=== PATIENT | female | born 1980 | race African-American/Black ===

== ENCOUNTER 2017-12-16 16:54 | Emergency (ER) | payer OTHER ==
[2017-12-16 17:02] VITALS: BMI 42.4
[2017-12-16] MEDS ORDERED: MAGNESIUM SULF 50% (8.12 MEQ/2 ML-1 GM VIAL) IVPB ONE (17:16)
[2017-12-16] MEDS ORDERED: METOCLOPRAMIDE HCL INJECTION 10 MG/2 ML VIAL IVPB ONE ×2 (17:18→17:53)
--- NOTE | 2017-12-16 17:39 | PDOC ---
Attending Attestation - Resident Resident Name: William Frey - ED Attending Attestation I have performed the following: I have examined & evaluated the patient, The case was reviewed & discussed with the resident, I agree w/resident's findings & plan, Exceptions are as noted - HPI HPI: 12/16/17 17:38 Ms Ramirez is a 37 yo F who presents to the ER with a complaint of headache Pt symptoms have been present through out the day No head trauma No fevers or chills - Physicial Exam PE: 12/16/17 17:38 GENERAL: The patient is in no acute distress. NECK: Normal range of motion, supple without lymphadenopathy, JVD, or masses. LUNGS: Breath sounds equal, clear to auscultation bilaterally. No wheezes, and no crackles. HEART:Regular rate and rhythm, normal S1 and S2 without murmur, rub or gallop. ABDOMEN: Soft, nontender, normoactive bowel sounds. No guarding, no rebound. No masses palpable. EXTREMITIES: Normal range of motion, no edema. No clubbing or cyanosis. No erythema, or tenderness. NEUROLOGICAL: Cranial nerves II through XII grossly intact. Normal speech. No focal neurological deficits. MUSCULOSKELETAL: Back non-tender to palpation, no CVA tenderness SKIN: Warm, Dry, normal turgor, no rashes or lesions noted. - Medical Decision Making 12/16/17 20:22 Laboratory Tests 12/16/17 12/16/17 12/16/17 17:49 18:00 18:00 WBC 15.5 H D Hgb 12.6 D Hct 36.8 Plt Count 356 D Neutrophils % (Manual) 70.0 INR 0.96 Urine Blood Negative Urine Nitrite Negative Ur Leukocyte Esterase 2+ H Urine WBC (Auto) 22 Urine RBC (Auto) 4 Ur Epithelial Cells Moderate U Marijuana (THC) Screen 12/16/17 18:12 WBC Hgb Hct Plt Count Neutrophils % (Manual) INR Urine Blood Urine Nitrite Ur Leukocyte Esterase Urine WBC (Auto) Urine RBC (Auto) Ur Epithelial Cells U Marijuana (THC) Screen Positive Pt CMP still pending Pt has already had a tray of food, she is requesting another UA is not clean but does show [address] Mcfarlane Will send to ob for monitoring 1+ protein on the UA Pt not hypertensive Headache resolved No scotoma 12/16/17 20:24 Suspect tension vs migraine headache Do not suspect pre eclampsia Pt will still be sent to OB for evaluation as she is a high risk Clinical Impression: headache, initial presentation
[2017-12-16] MEDS ORDERED: METOCLOPRAMIDE HCL INJECTION 10 MG/2 ML VIAL ONE (17:54)
[2017-12-16 18:16] LABS: BASO % 0.7 % (0-2.0); EOS % 1.8 % (0-4.5); HEMATOCRIT 36.8 % (32.4-45.2); HEMOGLOBIN 12.6 GM/dL (10.7-15.3); LYMPH % 25.5 % (8-40); MCH 31.4 pg (25.7-33.7); MCHC 34.3 g/dl (32.0-36.0); MEAN CELL VOLUME 91.5 fl (80-96); MEAN PLT VOLUME 7.8 fl (7.5-11.1); MONO % 7.2 % (3.8-10.2); NEUT % 64.8 % (42.8-82.8); PLATELET COUNT 356 K/MM3 (134-434); RBC 4.02 M/mm3 (3.60-5.2); RDW 14.2 % (11.6-15.6); WHITE BLOOD COUNT 15.5 K/mm3 (4.0-10.0)
[2017-12-16 18:36] LABS: INR 0.96 (0.82-1.09); PROTHROMBIN TIME (PATIENT) 10.9 SEC (9.7-13.0)
--- NOTE | 2017-12-16 18:42 | PDOC ---
History of Present Illness - General Chief Complaint: Headache Stated Complaint: HEADACHE Time Seen by Provider: 12/16/17 17:01 History Source: Patient Exam Limitations: No Limitations - History of Present Illness Initial Comments: 12/16/17 18:44 The patient is a aborta 2 at 7 months who presents to the ER with complaints of a headache. The patient states that this morning at 0200 she had an acute onset headache which is bilateral, frontal, described as pressure, nonradiating, 10/10 without any alleviating factors, worsened by light and loud sound. She denies any fever, chills, nausea, vomiting, diarrhea, constipation, vaginal bleeding, discharge, and abdominal cramping, dysuria, hematuria. Past History - Past Medical History Allergies/Adverse Reactions: Allergies Allergy/AdvReac Type Severity Reaction Status Date / Time acetaminophen [From Tylenol] Allergy Severe Difficulty Verified 11/07/17 16:39 Breathing aspirin Allergy Severe Difficulty Verified 11/07/17 16:39 Breathing ibuprofen [From Motrin] Allergy Severe Difficulty Verified 11/07/17 16:39 Breathing Penicillins Allergy Severe Hives Verified 11/07/17 16:39 Home Medications: Ambulatory Orders Vit No.130/Iron/Folic [ Vitamins] 1 each PO DAILY 11/07/17 Quetiapine Fumarate [Seroquel] 600 mg PO DAILY 11/07/17 Zolpidem Tartrate [Ambien] 10 mg PO HS 11/07/17 COPD: No - Suicide/Smoking/Psychosocial Hx Smoking History: Current every day smoker Have you smoked in the past 12 months: No Number of Cigarettes Smoked Daily: 10 Information on smoking cessation initiated: No Hx Alcohol Use: No Drug/Substance Use Hx: No Substance Use Type: None Review of Systems - Review of Systems Able to Perform ROS?: Yes Comments:: 12/16/17 18:47 GENERAL/CONSTITUTIONAL: No fever or chills. No weakness. HEAD, EYES, EARS, NOSE AND THROAT: No change in vision. No ear pain or discharge. No sore throat. CARDIOVASCULAR: No chest pain, palpitations, or lightheadedness. RESPIRATORY: No cough, wheezing, shortness of breath, or hemoptysis. GASTROINTESTINAL: No nausea, vomiting, diarrhea, constipation, or abdominal pain. GENITOURINARY: No dysuria, frequency, hematuria, or change in urination. MUSCULOSKELETAL: No joint or muscle swelling or pain. No neck or back pain. SKIN: No rash or lesions. NEUROLOGIC: Positive for headache. No numbness, tingling, weakness, loss of consciousness, or change in strength/sensation. ENDOCRINE: No increased thirst. No abnormal weight change. HEMATOLOGIC/LYMPHATIC: No anemia, easy bleeding, or history of blood clots. ALLERGIC/IMMUNOLOGIC: No hives or skin allergy. Is the patient limited Polish proficient: No *Physical Exam - Vital Signs Last Vital Signs Temp Pulse Resp BP Pulse Ox 98.0 F 85 18 119/75 98 12/16/17 18:12 12/16/17 18:12 12/16/17 18:12 12/16/17 18:12 12/16/17 18:12 - Physical Exam Comments: 12/16/17 18:47 GENERAL: Well developed, well nourished. Awake and alert. No acute distress. HEENT: Normocephalic, atraumatic. Hearing grossly normal. Moist mucous membranes. PERRLA, EOMI. No conjunctival pallor. Sclera are non-icteric. NECK: Supple. Full ROM. CARDIOVASCULAR: Regular rate and rhythm. No murmurs, rubs, or gallops. PULMONARY: No evidence of respiratory distress. Lungs clear to auscultation bilaterally. No wheezing, rales or rhonchi. ABDOMINAL: Soft. Non-tender. Non-distended. No rebound or guarding. GENITOURINARY: No CVA tenderness bilaterally. MUSCULOSKELETAL: Normal range of motion at all joints. No bony deformities or tenderness. EXTREMITIES: No cyanosis. No clubbing. No edema. No calf tenderness or swelling. SKIN: Warm and dry. Normal capillary refill. No rashes. No jaundice. NEUROLOGICAL: Alert, awake, appropriate. Cranial nerves 2-12 intact. No deficits to light touch and temperature in face, upper extremities and lower extremities. No motor deficits in the in face, upper extremities and lower extremities. Normal speech. Gait is normal without ataxia. PSYCHIATRIC: Cooperative. Good eye contact. Appropriate mood and affect. ED Treatment Course - LABORATORY CBC & Chemistry Diagram: 12/16/17 18:00 12/16/17 18:00 - ADDITIONAL ORDERS Additional order review: Laboratory Results 12/16/17 12/16/17 18:00 18:00 PT with INR 10.90 INR 0.96 Sodium Cancelled Potassium Cancelled Chloride Cancelled Carbon Dioxide Cancelled Anion Gap Cancelled BUN Cancelled Creatinine Cancelled Creat Clearance w eGFR Cancelled Random Glucose Cancelled Calcium Cancelled Magnesium Cancelled Total Bilirubin Cancelled AST Cancelled ALT Cancelled Alkaline Phosphatase Cancelled Total Protein Cancelled Albumin Cancelled 12/16/17 18:00 RBC 4.02 MCV 91.5 MCHC 34.3 RDW 14.2 MPV 7.8 Neutrophils % 64.8 Lymphocytes % 25.5 Monocytes % 7.2 Eosinophils % 1.8 Basophils % 0.7 - Medications Given in the ED: ED Medications Discontinued Medications Generic Name Dose Route Start Last Admin Trade Name Freq PRN Reason Stop Dose Admin Magnesium Sulfate 2 gm 12/16/17 17:16 12/16/17 17:50 Magnesium Sulfate IVPB 12/16/17 17:17 Not Given ONCE ONE Metoclopramide HCl 10 mg 12/16/17 17:18 12/16/17 17:50 Reglan Injection - IVPB 12/16/17 17:19 10 mg ONCE ONE Administration Metoclopramide HCl 10 mg 12/16/17 17:53 12/16/17 18:15 Reglan Injection - IVPB 12/16/17 17:54 Not Given ONCE ONE Medical Decision Making - Medical Decision Making 12/16/17 18:48 The patient is a 37F aborta 2 at 7 months who presents to the ER with a constant headache. The patient's BP is normotensive, lowering my concern for eclampsia. I have low suspicion for sinus venous thrombosis as the pt's headache was treated with fluids and reglan and is resolved. CBC WNL. Pending CMP. UA pending. 12/16/17 19:03 Pt signed out to Dr. Huber pending UA and CMP. *DC/Admit/Observation/Transfer - Referrals Referrals: Joi Mcguire [Primary Care Provider] - - Patient Instructions - Post Discharge Activity
[2017-12-16 18:53] LABS: ANISOCYTOSIS 1+; MACROCYTOSIS 1+; PLATELET ESTIMATE ADEQUATE
[2017-12-16 19:02] LABS: URINE APPEARANCE SLCLOUDY; URINE BILIRUBIN NEGATIVE (<2.0 mg/dL); URINE COLOR YELLOW; URINE GLUCOSE (UA) NEGATIVE (NEGATIVE); URINE KETONE NEGATIVE (NEGATIVE); URINE NITRITE NEGATIVE (NEGATIVE); URINE UROBILINOGEN NEGATIVE mg/dL (0.2-1.0)
--- NOTE | 2017-12-16 19:07 | PDOC ---
*Physical Exam - Vital Signs Last Vital Signs Temp Pulse Resp BP Pulse Ox 98.0 F 85 18 119/75 98 12/16/17 18:12 12/16/17 18:12 12/16/17 18:12 12/16/17 18:12 12/16/17 18:12 - Physical Exam Comments: 12/16/17 19:12 GENERAL: Awake, alert, and fully oriented, in no acute distress HEAD: No signs of trauma, normocephalic, atraumatic EYES: PERRLA, EOMI, sclera anicteric, conjunctiva clear ENT: Auricles normal inspection, hearing grossly normal, nares patent, oropharynx clear without exudates. Moist mucosa NECK: Normal ROM, supple, no lymphadenopathy, JVD, or masses LUNGS: No distress, speaks full sentences, clear to auscultation bilaterally HEART: Regular rate and rhythm, normal S1 and S2, no murmurs, rubs or gallops, peripheral pulses normal and equal bilaterally. ABDOMEN: Soft, nontender, normoactive bowel sounds. No guarding, no rebound. No masses EXTREMITIES : Normal inspection, Normal range of motion, no edema. No clubbing or cyanosis. NEUROLOGICAL: Cranial nerves II through XII grossly intact. Normal speech, normal gait, no focal sensorimotor deficits SKIN: Warm, Dry, normal turgor, no rashes or lesions noted ED Treatment Course - LABORATORY CBC & Chemistry Diagram: 12/16/17 18:00 12/16/17 18:00 - ADDITIONAL ORDERS Additional order review: Laboratory Results 12/16/17 12/16/17 18:00 18:00 PT with INR 10.90 INR 0.96 Sodium Cancelled Potassium Cancelled Chloride Cancelled Carbon Dioxide Cancelled Anion Gap Cancelled BUN Cancelled Creatinine Cancelled Creat Clearance w eGFR Cancelled Random Glucose Cancelled Calcium Cancelled Magnesium Cancelled Total Bilirubin Cancelled AST Cancelled ALT Cancelled Alkaline Phosphatase Cancelled Total Protein Cancelled Albumin Cancelled 12/16/17 18:00 RBC 4.02 MCV 91.5 MCHC 34.3 RDW 14.2 MPV 7.8 Neutrophils % 64.8 Lymphocytes % 25.5 Monocytes % 7.2 Eosinophils % 1.8 Basophils % 0.7 - Medications Given in the ED: ED Medications Discontinued Medications Generic Name Dose Route Start Last Admin Trade Name Freq PRN Reason Stop Dose Admin Magnesium Sulfate 2 gm 12/16/17 17:16 12/16/17 17:50 Magnesium Sulfate IVPB 12/16/17 17:17 Not Given ONCE ONE Metoclopramide HCl 10 mg 12/16/17 17:18 12/16/17 17:50 Reglan Injection - IVPB 12/16/17 17:19 10 mg ONCE ONE Administration Metoclopramide HCl 10 mg 12/16/17 17:53 12/16/17 18:15 Reglan Injection - IVPB 12/16/17 17:54 Not Given ONCE ONE Medical Decision Making - Medical Decision Making 12/16/17 19:07 Pt is 37 yo aborta 2 at 7 mga who p/w bilateral, frontal, described as pressure, non-radiating, 10/10 EDDY beginning at 0200 AM. +Photophobia and phonophobia. Denies fever, chills, nausea, vomiting, diarrhea, constipation, vaginal bleeding, discharge, and abdominal cramping, dysuria, hematuria. BP 119/ 75, VSS, AF. Low suspicion eclampsia, or sinous venous thrombosis. Received Reglan and NS. ED Course: WBC:15.5 12/16/17 20:59 CMP: Unremarkable 12/16/17 21:00 UA: 2+ Leuk Est, 22 WBC. UTOX: + THC Patient cleared from ED. Will go to L&D for further testing/monitoring. Dr. Diaz Capacity Planning Manager agrees with dispo. *DC/Admit/Observation/Transfer - Referrals Referrals: Joi Mcguire [Primary Care Provider] - - Patient Instructions - Post Discharge Activity
[2017-12-16 19:10] LABS: COCAINE, UR NEGATIVE ng/ml (CUTOFF=300); METHADONE, UR NEGATIVE ng/ml (CUTOFF=300); OPIATES, URI NEGATIVE ng/ml (CUTOFF=300); PHENCYCLIDINE,URINE NEGATIVE ng/ml (CUTOFF=25); URINE AMPHETAMINES NEGATIVE ng/ml (CUTOFF=500); URINE BARBITURATES NEGATIVE ng/ml (CUTOFF=200); URINE BENZODIAZEPINES NEGATIVE ng/ml (CUTOFF=200)
[2017-12-16 19:21] LABS: URINE LEUK ESTERASE 2+ (NEGATIVE); URINE PROTEIN 1+ (NEGATIVE)
[2017-12-16 19:22] LABS: EPI CELLS MODERATE /HPF (FEW)
[2017-12-16 20:58] LABS: ALBUMIN 2.5 g/dl (3.4-5.0); ALK PHOS 99 U/L (45-117); ANION GAP 11 (8-16); BILIRUBIN,TOTAL 0.3 mg/dL (0.2-1.0); BLOOD UREA NITROGEN 10 mg/dL (7-18); CALCIUM 8.7 mg/dL (8.5-10.1); CHLORIDE 106 mmol/L (98-107); CO2 19 mmol/L (21-32); GLUCOSE,RANDOM 230 mg/dL (74-106); POTASSIUM 4.1 mmol/L (3.5-5.1); SGOT/AST 30 U/L (15-37); SGPT/ALT 39 U/L (12-78); SODIUM 136 mmol/L (136-145)
[2017-12-16 22:34] VITALS: BP 124/71; PULSE 102; TEMP 97.8
--- NOTE | 2017-12-17 22:09 | EKG ---
Test Reason : Blood Pressure : / mmHG Vent. Rate : 119 BPM Atrial Rate : 119 BPM P-R Int : 124 ms QRS Dur : 086 ms QT Int : 320 ms P-R-T Axes : 041 080 010 degrees QTc Int : 450 ms SINUS TACHYCARDIA OTHERWISE NORMAL ECG NO PREVIOUS ECGS AVAILABLE Confirmed by TRAVIS BURKETT MD ([id number]) on 12/17/2017 10:09:27 PM Referred By: Confirmed By:TRAVIS BURKETT MD
== END 2017-12-16 22:45 | disposition home or self-care (01) ==
LOC: JER 16:54
DX: O26.893 Other specified pregnancy related conditions, third trimester (principal); R51 Headache; Z3A.31 31 weeks gestation of pregnancy
CPT/HCPCS: 36415; 80053; 80307; 81003; 81015; 85025; 85610; 87086; 93005; 93010; 99283-25

== ENCOUNTER 2018-01-25 08:27 | Inpatient (IN) | payer OTHER ==
[2018-01-25] MEDS ORDERED: OXYTOCIN 20 UNITS in 0.9% NS 20 UNIT/1,000 ML INFUS.BAG IV ONE (08:51)
[2018-01-25] MEDS ORDERED: VANCOMYCIN 1 GM PREMIX - 1 GM/200 ML BAG IVPB ONE (09:00)
[2018-01-25 09:32] LABS: BASO % 1.2 % (0-2.0); HEMATOCRIT 40.6 % (32.4-45.2); HEMOGLOBIN 13.8 GM/dL (10.7-15.3); LYMPH % 24.8 % (8-40); MCH 31.6 pg (25.7-33.7); MCHC 34.1 g/dl (32.0-36.0); MEAN CELL VOLUME 92.7 fl (80-96); MEAN PLT VOLUME 8.3 fl (7.5-11.1); MONO % 5.2 % (3.8-10.2); NEUT % 67.8 % (42.8-82.8); PLATELET COUNT 369 K/MM3 (134-434); RBC 4.38 M/mm3 (3.60-5.2); RDW 14.4 % (11.6-15.6); WHITE BLOOD COUNT 16.2 K/mm3 (4.0-10.0)
[2018-01-25 09:39] VITALS: BMI 41.9
[2018-01-25 09:47] LABS: INR 0.91 (0.82-1.09); PROTHROMBIN TIME (PATIENT) 10.3 SEC (9.7-13.0)
[2018-01-25 09:50] LABS: ACTIVATED PTT 31.1 SECONDS (25.2-36.5)
[2018-01-25 09:57] LABS: ANION GAP 11 (8-16); BLOOD UREA NITROGEN 10 mg/dL (7-18); CALCIUM 9.1 mg/dL (8.5-10.1); CHLORIDE 108 mmol/L (98-107); CO2 18 mmol/L (21-32); CREATININE 1.1 mg/dL (0.55-1.02); GLUCOSE,RANDOM 177 mg/dL (74-106); SODIUM 137 mmol/L (136-145)
[2018-01-25] MEDS ORDERED: LIDOCAINE HCL 1% PRESERVATIVE FREE - 30ML VIAL ONE (10:16)
[2018-01-25] MEDS ORDERED: BENZOCAINE 20% 57 GM BOTTLE TP PRN (10:39)
[2018-01-25] MEDS ORDERED: WITCH HAZEL 50% (TUCKS) 40 PAD/JAR PAD TP PRN (10:39)
[2018-01-25] MEDS ORDERED: METHYLERGONOVINE MALEATE 0.2 MG/1 ML AMP IM PRN (10:39)
[2018-01-25] MEDS ORDERED: BISACODYL 10 MG SUPP.RECT RC PRN (10:39)
[2018-01-25] MEDS ORDERED: BENZOCAINE 28 GM HEMORRHOIDAL OINTMENT TP PRN (10:39)
--- NOTE | 2018-01-25 10:43 | HP ---
Past Medical History - Admission Chief Complaint: Labor pain History of Present Illness: 38 yo , @ 37 weeks gestation, EDC 02/15/18, admitted for labor pain. Patient has h/o substance abuse and is on multiple medication. She also has allergies with several medication. Upon admission she was 6cm dilated. History Source: Patient Limitations to Obtaining History: Uncooperative - Past Medical History ...: 5 ...Para: 2 ...Term: 0 ...: 2 ...Spon : 0 ...Induced : 2 ...Multiple Gestation: 0 ...LMP: 05/11/17 ... Weeks Gestation by Dates: 37.0 ...EDC by Dates: 02/15/18 ...EDC by Sono: 02/16/18 - Past Surgical History Past Surgical History: Yes: None Hx Myomectomy: No Hx Transabdominal Cerclage: No - Smoking History Smoking history: Current every day smoker Have you smoked in the past 12 months: Yes Aproximately how many cigarettes per day: 20 - Alcohol/Substance Use Hx Alcohol Use: Yes History of Substance Use: reports: None - Social History Usual Living Arrangement: Yes: With Significant Other History of Recent Travel: No Home Medications - Allergies Allergies/Adverse Reactions: Allergies Allergy/AdvReac Type Severity Reaction Status Date / Time acetaminophen [From Tylenol] Allergy Severe Difficulty Verified 01/25/18 09:12 Breathing aspirin Allergy Severe Difficulty Verified 01/25/18 09:12 Breathing ibuprofen [From Motrin] Allergy Severe Difficulty Verified 01/25/18 09:12 Breathing Penicillins Allergy Severe Hives Verified 01/25/18 09:12 - Home Medications Home Medications: Ambulatory Orders Vit No.130/Iron/Folic [ Vitamins] 1 each PO DAILY 11/07/17 Quetiapine Fumarate [Seroquel] 600 mg PO DAILY 11/07/17 Zolpidem Tartrate [Ambien] 10 mg PO HS 11/07/17 Alprazolam [Xanax] 2 mg PO DAILY 01/25/18 Bupropion HCl [Wellbutrin -] 100 mg PO DAILY 01/25/18 Sertraline HCl [Zoloft] 100 mg PO BID 01/25/18 Review of Systems - Review of Systems Constitutional: reports: No Symptoms Eyes: reports: No Symptoms HENT: reports: No Symptoms Neck: reports: No Symptoms Cardiovascular: reports: No Symptoms Respiratory: reports: No Symptoms Gastrointestinal: reports: No Symptoms Genitourinary: reports: Pain Breasts: reports: No Symptoms Reported Musculoskeletal: reports: No Symptoms Neurological: reports: No Symptoms Endocrine: reports: No Symptoms Hematology/Lymphatic: reports: No Symptoms Psychiatric: reports: No Symptoms Pain Intensity: 9 Physical Exam - Maternity Vital Signs: Vital Signs Temperature 97.6 F 01/25/18 08:41 Pulse Rate 88 01/25/18 08:41 Respiratory Rate 20 01/25/18 08:41 Blood Pressure 137/85 01/25/18 08:41 O2 Sat by Pulse Oximetry (%) Constitutional: Yes: Well Nourished Eyes: Yes: Conjunctiva Clear HENT: Yes: Atraumatic Neck: Yes: Supple Cardiovascular: Yes: Regular Rate and Rhythm Lungs: Clear to auscultation - Abdominal Exam/OB Number of Fetuses: Single Presentation: Vertex - Vaginal Exam/OB Vaginal Bleediing: No - Physical Exam Musculoskeletal: Yes: WNL Extremities: Yes: WNL ...Motor Strength: WNL Psychiatric: Yes: Agitated - Labs Lab Results: CBC, BMP 01/25/18 09:20 01/25/18 09:20 Assessment/Plan Active labor 37 weeks gestation Spontaneous rupture of membrane Anticipate
--- NOTE | 2018-01-25 10:43 | PN ---
Delivery - Delivery Vaginal Delivery: Spontaneous Episiotomy/Laceration: Midline EBL (cc): 300 Delivery, Single - 1 Minute Total Score: 7 5 Minutes Total Score: 8 - Feeding Plan Initial Plan: Elected not to breastfeed exclusively throughout hospitalization Remarks - Remarks Remarks: Normal spontaneous vaginal delivery of a live infant under unusual circumstances. Patient was very uncoorporative. She would pull herself off the bed and close her legs, refusing to push and demanding for . After having 4 people holding her legs, and using suprapubic pressure, head was delivered. Nose / Oropharynx suctioned @ perineum. Cord clamped and cut. Placenta expelled spontaneously intact. Midline episiotomy repaired with 2.0 Chromic.
[2018-01-25] MEDS ORDERED: OXYTOCIN 20 UNITS in 0.9% NS 20 UNIT/1,000 ML INFUS.BAG IV SCH (10:45)
[2018-01-25] MEDS ORDERED: METHYLERGONOVINE MALEATE 0.2 MG/1 ML AMP IM ONE (12:00)
[2018-01-25] MEDS ORDERED: MEPERIDINE HCL CARPU-JECT 25 MG/1 ML DISP.SYRIN IM PRN (12:58)
[2018-01-25 13:05] LABS: COCAINE, UR NEGATIVE ng/ml (CUTOFF=300); OPIATES, URI NEGATIVE ng/ml (CUTOFF=300); URINE AMPHETAMINES NEGATIVE ng/ml (CUTOFF=500); URINE BARBITURATES NEGATIVE ng/ml (CUTOFF=200); URINE BENZODIAZEPINES NEGATIVE ng/ml (CUTOFF=200)
[2018-01-25 13:06] LABS: METHADONE, UR NEGATIVE ng/ml (CUTOFF=300); PHENCYCLIDINE,URINE NEGATIVE ng/ml (CUTOFF=25)
[2018-01-25] MEDS: FERROUS SO4 325 MG TABLET (FP) PO SCH (22:39)
--- NOTE | 2018-01-26 07:40 | PN ---
Progress Note (short form) - Note Progress Note: ppd 1 doing well, no excess vaginal bleeding CBC, BMP 01/25/18 09:20 01/25/18 09:20 Last Vital Signs Temp Pulse Resp BP Pulse Ox 98.5 F 65 18 130/78 98 01/26/18 06:00 01/26/18 06:00 01/26/18 06:00 01/26/18 06:00 01/25/18 11:15 abdomen soft, uterus firm, non tender lochia mild no calf tenderness plan ambulate cbc
[2018-01-26] MEDS: PRENATAL VITAMINS W/ FOLIC ACID TABLET (FP) PO SCH (09:56)
[2018-01-26] MEDS: FERROUS SO4 325 MG TABLET (FP) PO SCH ×2 (09:56→21:51)
[2018-01-26 11:05] LABS: BASO % 0.2 % (0-2.0); EOS % 0.7 % (0-4.5); HEMATOCRIT 37.6 % (32.4-45.2); HEMOGLOBIN 12.8 GM/dL (10.7-15.3); LYMPH % 21.1 % (8-40); MCH 31.4 pg (25.7-33.7); MEAN CELL VOLUME 92.5 fl (80-96); MONO % 4.8 % (3.8-10.2); NEUT % 73.2 % (42.8-82.8); PLATELET COUNT 334 K/MM3 (134-434); RBC 4.07 M/mm3 (3.60-5.2); RDW 14.3 % (11.6-15.6); WHITE BLOOD COUNT 22.1 K/mm3 (4.0-10.0)
--- NOTE | 2018-01-26 18:31 | CON.PSY ---
Psychiatry Consult Chief Complaint: Patient with a long history of Psych Illness, [place] being treated at [facility] [place] been on Seroquel 300mg p[o bid, ambien 10mg po hs , Xanax 2mg po bid. She has not taken Xanax in seven months. Symptoms: reports: Irritability, Restlessness - Previous Psychiatric Treatment Outpatient: Less than 6 mos ago Inpatient: None - Reason for Previous Treatment Reason for Previous Treatment: Major Depression, Anxiety or Panic Disorder - Current Medications Current Medications: Active Medications Benzocaine (Americaine 20% [place] -) 1 spray TP PRN PRN PRN Reason: PAIN Benzocaine (Americaine Ointment -) 1 applic TP PRN PRN PRN Reason: PAIN Bisacodyl (Dulcolax Suppository -) 10 mg RC PRN PRN PRN Reason: CONSTIPATION Ferrous Sulfate (Feosol -) 325 mg PO BID [facility] Last Admin: 01/26/18 09:56 Dose: 325 mg Meperidine HCl (Demerol Injection -) 50 mg IM Q6H PRN PRN Reason: PAIN LEVEL 4 - 6 Last Admin: 01/25/18 14:06 Dose: 50 mg Methylergonovine Maleate (Methergine Injection -) 0.2 mg IM Q4H PRN PRN Reason: EXCESSIVE BLEEDING (L&D) Last Admin: 01/25/18 10:20 Dose: 0.2 mg Multivit/Folic Acid/Iron ( Vitamins (Sjr) -) 1 tab PO DAILY [facility] Last Admin: 01/26/18 09:56 Dose: 1 tab Senna/Docusate Sodium (Pericolace -) 2 tablet PO HS PRN PRN Reason: CONSTIPATION Witch Giselle/Glycerin (Tucks Pads -) 1 pad TP PRN PRN PRN Reason: PAIN - Allergies Allergies: Allergies Allergy/AdvReac Type Severity Reaction Status Date / Time acetaminophen [From Tylenol] Allergy Severe Difficulty Verified 01/25/18 09:12 Breathing aspirin Allergy Severe Difficulty Verified 01/25/18 09:12 Breathing ibuprofen [From Motrin] Allergy Severe Difficulty Verified 01/25/18 09:12 Breathing Penicillins Allergy Severe Hives Verified 01/25/18 09:12 - Current Living Status Usual Living Arrangement: With Spouse - Current Mental Status Evaluation Appearance: Well Groomed Attitude: Cooperative - Affect Affect: Constrictive Appropriateness: Appropriate to Content - Mood Mood: Angry - Speech/Language Expressive: Coherent - Psychomotor Activity Psychomotor Activity: Hyperactive - Thought Process Thought Process: Intact - Thought Content Hallucinations: Absent Delusions: Absent - Self Perception Self Perception: No Impairment - Cognition Attention: Alert Orientation: Time Memory, Immediate Recall: Intact Memory, Short Term: 3/3 Memory, Remote with Promptin/3 - Concentration Serial Sevens Intact: No Simple Calculations Intact: Yes - Abstraction Proverb Interpretation: Intact Judgement: Intact - Insight Insight: Intact - Impulse Control Impulse Control: Minimally Impaired - Suicidal Ideation Suicidal Ideation: No - Homicidal Ideation Homicidal Ideation: No Assessment/Plan 1) Restart Seroquel 300mg po bid. 2) Patient is cleared for Discharge. 3) follow up at [facility] in [place].
[2018-01-26] MEDS: QUEtiapine FUMARATE 100 MG TABLET (FP) PO SCH (21:51)
[2018-01-26] MEDS ORDERED: SENNOSIDES/DOCUSATE COMBO (SENNA PLUS) TABLET (UD) PO PRN (22:00)
--- NOTE | 2018-01-27 07:58 | DS ---
Physical Exam-[employer] WORK[employer] WORKER Vital Signs: Vital Signs Temperature 98.0 F 01/26/18 22:00 Pulse Rate 96 H 01/26/18 22:00 Respiratory Rate 18 01/26/18 22:00 Blood Pressure 117/71 01/26/18 22:00 O2 Sat by Pulse Oximetry (%) 98 01/25/18 11:15 Constitutional: Yes: Well Nourished, No Distress, Calm Eyes: Yes: WNL, Conjunctiva Clear, EOM Intact HENT: Yes: WNL, Atraumatic, Normocephalic Neck: Yes: WNL, Supple, Trachea Midline Cardiovascular: Yes: WNL, Regular Rate and Rhythm Respiratory: Yes: WNL, Regular, CTA Bilaterally Gastrointestinal: Yes: WNL ...Rectal Exam: Yes: WNL Renal/: Yes: WNL ....Post : Yes: Uterus firm, Uterus non-tender, Slight lochia rubra Breast(s): Yes: WNL Musculoskeletal: Yes: WNL Extremities: Yes: WNL Integumentary: Yes: WNL Neurological: Yes: WNL, Alert, Oriented ...Motor Strength: WNL Psychiatric: Yes: WNL, Alert, Oriented Labs: CBC, BMP 01/26/18 10:35 01/25/18 09:20 Delivery - Delivery Vaginal Delivery: Spontaneous Type of Anesthesia: Local Episiotomy/Laceration: Midline EBL (cc): 300 Delivery, Single - Stages of Labor Date 1st Stage Initiatied: 01/25/18 Time 1st Stage Initiated: 06:00 Date 2nd Stage Initiated: 01/25/18 Time 2nd Stage Initiated: 09:40 Date of Delivery: 01/25/18 Time of Delivery: 10:11 Time Placenta Delivered: 10:15 Placenta: Yes: Spontaneous - Condition of Infant Road Builder/Tamale Maker Present: Yes Name: Kristofer Cotsa Gender: Female Weight: 6 lb 11 oz Position: Right, OA Total Hours ROM (Hrs/Mins): 13HR -36 MINS - 1 Minute Total Score: 7 5 Minutes Total Score: 8 - Feeding Plan Initial Plan: Elected not to breastfeed exclusively throughout hospitalization Discharge Summary Reason For Visit: LABOR Procedures: Principal: Condition: Good - Instructions Diet, Activity, Other Instructions: regular diet, follow up [facility] care 4 weeks, no intercourse, if heavy bleeding, fever , pain call MD Disposition: HOME - Home Medications Comprehensive Discharge Medication List: Ambulatory Orders Vit No.130/Iron/Folic [ Vitamins] 1 each PO DAILY 11/07/17 Quetiapine Fumarate [Seroquel] 600 mg PO DAILY 11/07/17 Zolpidem Tartrate [Ambien] 10 mg PO HS 11/07/17 Alprazolam [Xanax] 2 mg PO DAILY 01/25/18 Bupropion HCl [Wellbutrin -] 100 mg PO DAILY 01/25/18 Sertraline HCl [Zoloft] 100 mg PO BID 01/25/18
[2018-01-27 08:48] VITALS: BP 135/81; PULSE 93; TEMP 97.5
[2018-01-27] MEDS: PRENATAL VITAMINS W/ FOLIC ACID TABLET (FP) PO SCH (09:44)
[2018-01-27] MEDS: FERROUS SO4 325 MG TABLET (FP) PO SCH (09:44)
[2018-01-27] MEDS: QUEtiapine FUMARATE 100 MG TABLET (FP) PO SCH (09:44)
== END 2018-01-27 13:00 | disposition home or self-care (01) | DRG 560 ==
LOC: JLDR 08:27 → J3W 11:50
PROVIDERS: ADMIT Obstetrics & Gynecology; ATTEND Obstetrics & Gynecology
PROC: 10E0XZZ Delivery of Products of Conception, External Approach (ICD-10-PCS; principal; 2018-01-25)
PROC: 0W8NXZZ Division of Female Perineum, External Approach (ICD-10-PCS; 2018-01-25)
DX: O99.344 Other mental disorders complicating childbirth (principal); F32.9 Major depressive disorder, single episode, unspecified; F41.9 Anxiety disorder, unspecified; Z3A.37 37 weeks gestation of pregnancy; Z37.0 Single live birth; Z88.0 Allergy status to penicillin
CPT/HCPCS: 36415; 59409; 80048; 80307; 85025; 85610; 85730; 86593; 86850; 86900; 86901; 87389

== ENCOUNTER 2018-03-12 11:39 | Emergency (ER) | payer OTHER ==
[2018-03-12 11:46] VITALS: BMI 42.0
[2018-03-12] MEDS ORDERED: SODIUM CHLORIDE 1,000 ML IV STA (12:13)
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
--- NOTE | 2018-03-12 12:39 | PDOC ---
*Physical Exam - Vital Signs Last Vital Signs Temp Pulse Resp BP Pulse Ox 98.3 F 108 H 18 128/75 100 03/12/18 11:42 03/12/18 11:42 03/12/18 11:42 03/12/18 11:42 03/12/18 11:42 ED Treatment Course - LABORATORY CBC & Chemistry Diagram: 03/12/18 12:40 03/12/18 12:40 Medical Decision Making - Medical Decision Making 03/12/18 12:39 Pt seen by Midlevel Provider under my direct supervision Pt interviewed and examined Ancillary studies reviewed I agree with plan as outlined by Midlevel Provider *DC/Admit/Observation/Transfer Diagnosis at time of Disposition: UTI (urinary tract infection), Vaginal bleeding - Discharge Dispostion Disposition: HOME Condition at time of disposition: Good - Prescriptions Prescriptions: Fluconazole [Diflucan] 150 mg PO ONCE #1 tablet Nitrofurantoin Monohyd/M-Cryst [Macrobid -] 100 mg PO BID #14 capsule - Referrals - Patient Instructions Printed Discharge Instructions: Urinary Tract Infection Additional Instructions: Your blood work and ultrasound were normal. Your urine test showed that you do have an infection and antibiotics was sent to pharmacy. Your vaginal bleeding is most likely your menstruation which usually resumes about 6 weeks after delivery. Please follow-up with your RECREATION THERAPY AIDE in the next week - Post Discharge Activity
[2018-03-12 12:54] LABS: BASO % 1.5 % (0-2.0); HEMATOCRIT 38.2 % (32.4-45.2); HEMOGLOBIN 12.9 GM/dL (10.7-15.3); LYMPH % 38.4 % (8-40); MCH 30.2 pg (25.7-33.7); MCHC 33.9 g/dl (32.0-36.0); MEAN CELL VOLUME 89.2 fl (80-96); MEAN PLT VOLUME 7.7 fl (7.5-11.1); MONO % 6.4 % (3.8-10.2); NEUT % 49.7 % (42.8-82.8); PLATELET COUNT 376 K/MM3 (134-434); RBC 4.28 M/mm3 (3.60-5.2); RDW 13.6 % (11.6-15.6); WHITE BLOOD COUNT 9.7 K/mm3 (4.0-10.0)
[2018-03-12 13:08] LABS: URINE APPEARANCE CLOUDY; URINE BILIRUBIN NEGATIVE (<2.0 mg/dL); URINE COLOR DK YELLOW; URINE GLUCOSE (UA) NEGATIVE (NEGATIVE); URINE KETONE NEGATIVE (NEGATIVE); URINE LEUK ESTERASE 1+ (NEGATIVE); URINE NITRITE POSITIVE (NEGATIVE); URINE PROTEIN 1+ (NEGATIVE); URINE UROBILINOGEN NEGATIVE mg/dL (0.2-1.0)
[2018-03-12 13:11] LABS: INR 0.98 (0.83-1.09); PROTHROMBIN TIME (PATIENT) 11.1 SEC (9.7-13.0)
[2018-03-12 13:17] LABS: EPI CELLS RARE /HPF (FEW); URINE BACTERIA MODERATE /hpf (NONE SEEN)
[2018-03-12 13:24] LABS: ANION GAP 6 MMOL/L (8-16); BILIRUBIN,TOTAL 0.4 mg/dL (0.2-1.0); BLOOD UREA NITROGEN 14 mg/dL (7-18); CALCIUM 8.5 mg/dL (8.5-10.1); CHLORIDE 104 mmol/L (98-107); CO2 27 mmol/L (21-32); CREATININE 0.8 mg/dL (0.55-1.02); GLUCOSE,RANDOM 162 mg/dL (74-106); SGPT/ALT 57 U/L (12-78); SODIUM 137 mmol/L (136-145); TOT PROT 6.9 g/dl (6.4-8.2)
[2018-03-12 13:25] LABS: ALK PHOS 144 U/L (45-117); POTASSIUM 4.5 mmol/L (3.5-5.1); SGOT/AST 55 U/L (15-37)
[2018-03-12 15:45] VITALS: BP 130/78; PULSE 105; TEMP 98.1
== END 2018-03-12 15:45 | disposition home or self-care (01) ==
LOC: JER 11:39
PROC: 3E0337Z Introduction of Electrolytic and Water Balance Substance into Peripheral Vein, Percutaneous Approach (ICD-10-PCS; principal; 2018-03-12)
DX: N39.0 Urinary tract infection, site not specified (principal); N93.0 Postcoital and contact bleeding
CPT/HCPCS: 36415; 76856-TC; 80053; 81003; 81015; 84702; 84703; 85025; 85610; 96360; 99283-25; J7030

== ENCOUNTER 2018-10-10 21:58 | Emergency (ER) | payer OTHER ==
[2018-10-10 22:04] VITALS: BP 134/74; PULSE 109; TEMP 98.3; BMI 44.9
== END 2018-10-11 01:26 | disposition left against medical advice (07) ==
LOC: JERFT 21:58 → JER 21:58
DX: Z53.21 Procedure and treatment not carried out due to patient leaving prior to being seen by health care provider (principal)
CPT/HCPCS: 84703; 99282-25

== ENCOUNTER 2020-03-09 08:34 | Emergency (ER) | payer OTHER ==
[2020-03-09 08:38] VITALS: BP 139/88; PULSE 100; TEMP 98.5; BMI 41.5
[2020-03-09] MEDS ORDERED: DIPHTH,PERTUSS(ACELL),TET 0.5 ML DISP.SYRIN IM ONE ×2 (08:45→09:18)
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
== END 2020-03-09 09:40 | disposition home or self-care (01) ==
LOC: JERFT 08:34
PROC: 0HQFXZZ Repair Right Hand Skin, External Approach (ICD-10-PCS; principal; 2020-03-09)
PROC: 3E0234Z Introduction of Serum, Toxoid and Vaccine into Muscle, Percutaneous Approach (ICD-10-PCS; 2020-03-09)
DX: S61.411A Laceration without foreign body of right hand, initial encounter (principal)
CPT/HCPCS: 12002-25; 90471; 90715; 99284-25

== ENCOUNTER 2020-03-11 10:40 | Emergency (ER) | payer OTHER ==
[2020-03-11 10:46] VITALS: BP 104/76; PULSE 85; TEMP 98; BMI 41.5
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
== END 2020-03-11 12:27 | disposition home or self-care (01) ==
LOC: JERFT 10:40
DX: S93.491A Sprain of other ligament of right ankle, initial encounter (principal)
CPT/HCPCS: 73610-TC-RT-FY; 73630-TC-RT-FY; 99283-25

== ENCOUNTER 2020-03-18 12:44 | Emergency (ER) | payer OTHER ==
[2020-03-18 12:55] VITALS: BP 135/86; PULSE 100; TEMP 98.5; BMI 41.5
--- NOTE | 2020-03-18 13:09 | PDOC ---
Suture Removal/Wound Check HPI - History of Present Illness Chief Complaint: Suture/Staple Removal(Here) Stated Complaint: SUTURE REMOVAL (RT HAND0 Time Seen by Provider: 03/18/20 12:56 History Source: Yes: Patient Exam Limitations: Yes: No Limitations Treated at: [facility] ED Date of Last ED visit: 03/09/20 - Previous ED Treatment Type of procedure performed on last visit: Yes: Laceration Repair Tetanus Immunization: Yes: Given at last ED visit Antibiotics Prescribed: No Past History - Travel History Traveled outside of the country in the last 30 days: No Close contact w/someone who was outside of country & ill: No - Medical History Allergies/Adverse Reactions: Allergies Allergy/AdvReac Type Severity Reaction Status Date / Time acetaminophen [From Tylenol] Allergy Severe Difficulty Verified 03/11/20 10:47 Breathing aspirin Allergy Severe Difficulty Verified 03/11/20 10:47 Breathing ibuprofen [From Motrin] Allergy Severe Difficulty Verified 03/11/20 10:47 Breathing Penicillins Allergy Severe Hives Verified 03/11/20 10:47 Home Medications: Ambulatory Orders Vit No.130/Iron/Folic [ Vitamins] 1 each PO DAILY 11/07/17 Quetiapine Fumarate [Seroquel] 600 mg PO DAILY 11/07/17 Zolpidem Tartrate [Ambien] 10 mg PO HS 11/07/17 Alprazolam [Xanax] 2 mg PO DAILY 01/25/18 Bupropion HCl [Wellbutrin -] 100 mg PO DAILY 01/25/18 Sertraline HCl [Zoloft] 100 mg PO BID 01/25/18 Bacitracin - [Bacitracin Topical Ointment -] 1 applic TP DAILY #1 tube 03/09/20 Clindamycin [Cleocin -] 300 mg PO Q6HPO 5 Days #20 capsule 03/09/20 Tramadol HCl [Ultram] 50 mg PO BID 2 Days #5 tablet MDD 2 03/09/20 Miscellaneous Medical Supply [Outpatient Order] 1 each ASDIR #1 misc 03/11/20 Asthma: No Cancer: No Cardiac Disorders: No COPD: No Diabetes: No HTN: Yes Seizures: No Thyroid Disease: No - Surgical History Abdominal Surgery: Yes (TUBAL LIGATION) - Reproductive History Is Patient Now?: No - Immunization History Td Vaccination: No Immunization Up to Date: No - Psycho-Social/Smoking History Patient Lives Alone: No Lives with/in: spouse/SO Smoking History: Current every day smoker Have you smoked in the past 12 months: Yes Number of Cigarettes Smoked Daily: 10 Information on smoking cessation initiated: No 'Breaking Loose' booklet given: 03/12/18 - Substance Abuse Hx (Audit-C & DAST Scrn) How often the patient has a drink containing alcohol: Never Score: In Men: 4 or > Positive; In Women: 3 or > Positive: 0 Screen Result (Pos requires Nsg. Audit-10AR): Negative In the last yr the pt used illegal drug/Rx for NonMed reason: No Score: Yes response is considered Positive: 0 Screen Result (Positive result requires Nsg. DAST-10): Negative Suture Removal/Wound Check PE - Physical Exam Laceration/Wound Check Symptoms: reports: None Current Severity Level: None Maximum Severity Level: None Pain Localization: None Location of Laceration/Wound: right: Hand Pain Radiation: None *Review of Systems - Review of Systems Able to Perform ROS?: Yes Constitutional: No: Symptoms Reported HEENTM: No: Symptoms Reported Respiratory: No: Symptoms reported Cardiac (ROS): No: Symptoms Reported ABD/GI: No: Symptoms Reported : No: Symptoms Reported Musculoskeletal: No: Symptoms Reported Integumentary: No: Symptoms Reported Neurological: No: Numbness, Tingling *Physical Exam - Vital Signs Last Vital Signs Temp Pulse Resp BP Pulse Ox 98.5 F 100 H 19 135/86 98 03/18/20 12:52 03/18/20 12:52 03/18/20 12:52 03/18/20 12:52 03/18/20 12:52 - Physical Exam General Appearance: Yes: Nourished, Appropriately Dressed. No: Apparent Distress HEENT: positive: EOMI Neck: negative: Decreased range of motion Respiratory/Chest: negative: Respiratory Distress Gastrointestinal/Abdominal: negative: Distended Integumentary: positive: Normal Color, Warm, Moist Neurologic: positive: Motor Strength 5/5 (ambulatory) Medical Decision Making - Medical Decision Making 03/18/20 13:07 CC: suture removal Exam: removed 9 sutures wthout difficulty utilizing a #10 blade plan: bacitracin applied to suture holes Discharge - Discharge Information Problems reviewed: Yes Clinical Impression/Diagnosis: Encounter for removal of sutures Condition: Improved Disposition: HOME - Follow up/Referral - Patient Discharge Instructions Patient Printed Discharge Instructions: DI for Suture Removal - Post Discharge Activity
== END 2020-03-18 13:10 | disposition home or self-care (01) ==
LOC: JERFT 12:44
DX: Z48.02 Encounter for removal of sutures (principal)
CPT/HCPCS: 99281-25

== ENCOUNTER 2020-06-01 03:58 | Emergency (ER) | payer OTHER ==
[2020-06-01 04:10] VITALS: TEMP 98.7; BMI 33.3
[2020-06-01] MEDS ORDERED: ALBUTEROL SO4 HFA INHALER IH ONE ×2 (04:16→04:20)
[2020-06-01 04:38] LABS: EOS % 3.5 % (0-4.5); HEMATOCRIT 41.8 % (32.4-45.2); LYMPH % 47.5 % (8-40); MCH 29.9 pg (25.7-33.7); MCHC 33.4 g/dl (32.0-36.0); MEAN CELL VOLUME 89.4 fl (80-96); MEAN PLT VOLUME 8.5 fl (7.5-11.1); MONO % 5.8 % (3.8-10.2); NEUT % 41.2 % (42.8-82.8); PLATELET COUNT 253 K/MM3 (134-434); RBC 4.68 M/mm3 (3.60-5.2); RDW 14.8 % (11.6-15.6); WHITE BLOOD COUNT 11.2 K/mm3 (4.0-10.0)
[2020-06-01 04:57] LABS: CALCIUM 9.1 mg/dL (8.5-10.1)
[2020-06-01 04:58] LABS: ALBUMIN 3.4 g/dl (3.4-5.0); BLOOD UREA NITROGEN 13.7 mg/dL (7-18)
[2020-06-01 05:01] LABS: CREATININE 1.2 mg/dL (0.55-1.3)
[2020-06-01 05:03] LABS: BILIRUBIN,TOTAL 0.4 mg/dL (0.2-1); TOT PROT 6.8 g/dl (6.4-8.2)
[2020-06-01] MEDS ORDERED: guaiFENesin 600 MG TABLET.ER (FP) PO ONE (05:14)
[2020-06-01] MEDS ORDERED: DEXAMETHASONE SOD PHOSPHATE 10 MG/1 ML VIAL IVPUSH ONE (06:05)
[2020-06-01] MEDS ORDERED: DEXAMETHASONE SOD PHOSPHATE 10 MG/1 ML VIAL ONE (06:12)
[2020-06-01 06:39] VITALS: BP 126/88; PULSE 84
== END 2020-06-01 06:39 | disposition home or self-care (01) ==
LOC: JER 03:58
PROC: 3E0F7GC Introduction of Other Therapeutic Substance into Respiratory Tract, Via Natural or Artificial Opening (ICD-10-PCS; principal; 2020-06-01)
PROC: 3E033NZ Introduction of Analgesics, Hypnotics, Sedatives into Peripheral Vein, Percutaneous Approach (ICD-10-PCS; 2020-06-01)
DX: R06.02 Shortness of breath (principal); R05 Cough
CPT/HCPCS: 36415; 71045-TC-FY; 80053; 82550; 82553; 84484; 85025; 93005; 93010; 99285-25; J1100